=== PATIENT | female | born 1945 | race Caucasian/White ===

== ENCOUNTER 2021-11-16 08:38 | Emergency (ER) | payer MEDICARE, OTHER ==
[2021-11-16] MEDS ORDERED: Sodium Chloride 0.9% 1,000 ML IV ONE (09:13)
[2021-11-16] MEDS ORDERED: cefTRIAXone 2 GM Vial IVPUSH ONE (09:14)
[2021-11-16 09:30] LABS: ANION GAP 13.5 mmol/L (5-15); CHLORIDE,CL 102 mmol/L (98-107); ESTIMATED GFR 24 mL/min (>=60); SODIUM,NA 141 mmol/L (136-145)
[2021-11-16 09:55] LABS: CORONAVIRUS COVID-19 NAA POSITIVE (NEGATIVE)
== END 2021-11-16 11:27 | disposition short-term general hospital (02) ==
LOC: EDBD 08:38 → VM.ED 08:38
DX: U07.1 COVID-19 (principal); R06.03 Acute respiratory distress; E78.00 Pure hypercholesterolemia, unspecified; E03.9 Hypothyroidism, unspecified; I10 Essential (primary) hypertension; E11.9 Type 2 diabetes mellitus without complications; Z79.899 Other long term (current) drug therapy; Z79.4 Long term (current) use of insulin; Z79.01 Long term (current) use of anticoagulants; Z20.822 Contact with and (suspected) exposure to COVID-19
CPT/HCPCS: 0240U; 36415; 71045; 80053; 82550; 83605; 83615; 83880; 84145; 84484; 85025; 85379; 85610; 86140; 87040; 96361; 96374; 99285; J0696; J7030